=== PATIENT | male | born 1945 | race Caucasian/White ===

== ENCOUNTER 2018-06-10 15:26 | Inpatient (IN) ==
[2018-06-10] MEDS ORDERED: ASPIRIN PO ONE (15:35)
[2018-06-10] MEDS ORDERED: CARDIZEM IV ONE (15:38)
[2018-06-10] MEDS ORDERED: CARDIZEM 125/NS 125 MG/125 ML IVPB IV SCH ×2 (15:45→18:45)
--- NOTE | 2018-06-10 16:03 | PROVIDER DOCUMENTATION ---
This chart was entered by Vee Welch Scribe, acting as scribe for Asmita Isabel MD. HPI-Cardiac General - General Chief Complaint: Palpitations Stated Complaint: A-FIB Time Seen by Provider: 06/10/18 15:35 Source: patient, family Allergies/Adverse Reactions: Patient Allergies Allergy/AdvReac Type Severity Reaction Status Date / Time No Known Allergies Allergy Verified 06/10/18 15:35 Home Medications: Home Medication List Medication Instructions Recorded Confirmed Last Taken Type Allopurinol 100 mg PO DAILY 03/25/16 06/10/18 04/23/16 History Metformin HCl 1,000 mg PO BID 03/25/16 06/10/18 04/23/16 History Amlodipine Besylate 1 tab PO DAILY 07/06/17 06/10/18 Unknown History Morphine Sulfate 15 mg PO Q12HR PRN 07/06/17 06/10/18 Unknown History Rivaroxaban [Xarelto] 20 mg PO DAILY 09/29/17 06/10/18 Unknown History Sitagliptin [Januvia] 100 mg PO DAILY 09/29/17 06/10/18 Unknown History Aspirin 1 tab PO DAILY 06/10/18 06/10/18 Unknown History Diltiazem [Cardizem] 30 mg PO BID #14 tab 06/10/18 Unknown Rx Glipizide [Glucotrol] 5 mg PO DAILY 06/10/18 06/10/18 Unknown History Morphine Sulfate 1 tab PO Q8H 06/10/18 06/10/18 Unknown History - History of Present Illness-Cardiac Nature of Presenting Problem: Pt is 73/m w/ HR of 160 [employer], pt was at hospital receiving pre-op labs and EKG for neck surgery that he has scheduled next week and it was discovered that his HR was 160, so he was sent to ED. PT sts that he is not have any symptoms and denies any SOB or CP. Pt has significant cardiac hx and has had triples bypass and stents put in the the past. Pt has DM, HTN. Takes daily aspirin, amlodipine and morphine. Location: reports: other (no pain) Quality of Pain: reports: none Severity in ED: moderate Onset/Duration: unsure Timing: still present Context/Activities at Onset: reports: none Modifying Factors: improves with: nothing Palpitation Quality: fast/pounding heart beat History of arrythmia: reports: A-Fib Nitro Today/Relief: reports: no nitro taken today Aspirin Treatment Today: reports: provided at home Associated Symptoms: reports: denies symptoms. denies: diaphoresis, dizziness, nausea, shortness of breath, vomiting Similar Symptoms Previously?: Yes Recently Seen Here or By Another Healthcare Provider: No Review of Systems - Adult - REVIEW OF SYSTEMS - ADULT Constitutional: reports: no symptoms reported. denies: chills, fever Eyes: reports: no symptoms reported Ears, Nose, Mouth & Throat: reports: no symptoms reported Cardiovascular: reports: no symptoms reported. denies: chest pain, edema Respiratory: reports: no symptoms reported. denies: shortness of breath Gastrointestinal: reports: no symptoms reported. denies: nausea, vomiting Genitourinary: reports: no symptoms reported Musculoskeletal: reports: no symptoms reported Integumentary: reports: no symptoms reported Neurological: reports: no symptoms reported Psychiatric: reports: no symptoms reported Endocrine: reports: no symptoms reported. denies: excessive sweating Hematologic/Lymphatic: reports: no symptoms reported Allergic/Immunologic: reports: no symptoms reported All Other Systems: Reviewed and Negative Past History - Adult - PAST MEDICAL HISTORY-ADULT Review of Records: reports: Old Records Reviewed, Nursing Assessment Review, Medications Reviewed, Social history reviewed & non-contributory. Major Childhood Illnesses: reports: denies history Cardiovascular: reports: cardiac disease, A-Fib, blood clots, CAD, CHF, HTN Respiratory: reports: denies history Gastrointestinal: reports: denies history Obstetrical/Gynecological: reports: denies history Genitourinary: reports: denies history Musculoskeletal: reports: denies history Neurological: reports: Alzheimer's Endocrine/Immune: reports: Diabetes Other Conditions: reports: denies history Additional History: PE, DVT - PRIOR SURGERIES/PROCEDURES Surgical/Procedure History: reports: CABG, back/neck - IMMUNIZATION STATUS Childhood Immunizations: See Nurse Assessment Flu Vaccine: See Nurse Assessment - FAMILY HISTORY Family History: reviewed, not pertinent - SOCIAL HISTORY Smoking: denies, non-smoker Substance Use: none/never Alcohol Use Frequency: never Living Situation: family Physical Exam-General - PHYSICAL EXAM-ADULT Initial Vital Signs Reviewed: Yes - CONSTITUTIONAL General Appearance: appears well, alert, no apparent distress - EYES Eyes: pink conjunctivae - HEAD, EARS, NOSE, MOUTH & THROAT HENMT: normocephalic/atraumatic, moist mucous membranes, normal ENT inspection, TMs normal, pharynx normal - NECK Neck: non-tender, full range of motion, supple, normal inspection - RESPIRATORY Respiratory: lungs clear, normal breath sounds, no pleuratic chest pain, no respiratory distress, no accessory muscle use - CARDIOVASCULAR Cardiovascular: no edema, tachycardia (145), other (rapid rate, irregular) - GASTROINTESTINAL (ABDOMEN) Abdominal Exam: non tender, soft, no organomegaly, no pulsatile mass - LYMPHATIC Lymphatic: no adenopathy - MUSCULOSKELETAL Back Exam: normal inspection, no CVA tenderness, no vertebral tenderness Extremity: normal range of motion, non-tender, normal gait, normal inspection - SKIN Integumentary: normal color, normal turgor, warm/dry - NEUROLOGIC Neurologic: grossly normal, no motor/sensory deficits - PSYCHIATRIC Psych/Mental Status: normal mood/affect, normal thought content, normal thought process, oriented x 3 Progress - PLAN OF CARE/RESULTS Progress/Plan/Lab Results: Vital Signs - 8 hr 06/10/18 15:30 06/10/18 15:55 06/10/18 16:41 Temperature Pulse Rate 145 H 124 H 103 H Respiratory Rate 20 21 16 Blood Pressure 132/86 100/81 125/64 O2 Sat by Pulse Oximetry 97 97 97 06/10/18 17:08 06/10/18 17:10 06/10/18 18:36 Temperature 98.5 F Pulse Rate 100 H 121 H Respiratory Rate 14 21 Blood Pressure 108/75 131/97 O2 Sat by Pulse Oximetry 97 97 Laboratory Results - last 24 hr 06/10/18 06/10/18 06/10/18 15:45 15:45 15:45 WBC 15.69 H RBC 4.86 Hgb 14.0 Hct 40.1 L MCV 82.5 MCH 28.8 MCHC 34.9 RDW Std Deviation 13.4 Plt Count 319 MPV 10.6 H Immature Gran % (Auto) 0.3 Neut % (Auto) 71.0 Lymph % (Auto) 17.0 L [place] % (Auto) 11.2 H Eos % (Auto) 0.3 Baso % (Auto) 0.2 Immature Gran # (Auto) 0.05 H Neut # (Auto) 11.15 H Lymph # (Auto) 2.66 [place] # (Auto) 1.75 H Eos # (Auto) 0.05 Baso # (Auto) 0.03 ESR PT INR PTT (Actin FS) Sodium 140 Potassium 4.1 Chloride 100 Carbon Dioxide 22 L Anion Gap 18 BUN 26 H Creatinine 1.4 H Estimated GFR/1.73 m2 50 BUN/Creatinine Ratio 19 Glucose 282 H Calculated Osmolality 294 Calcium 8.9 Total Bilirubin 0.30 AST 26 ALT 28 Alkaline Phosphatase 58 Creatine Kinase 32 Troponin T Ckx-[id number]-Ojzdqpvbhel Pept 718 H Total Protein 7.1 Albumin 3.8 Globulin 3.0 Albumin/Globulin Ratio 1.0 Digoxin Monoscreen 06/10/18 06/10/18 06/10/18 15:45 15:45 15:45 WBC RBC Hgb Hct MCV MCH MCHC RDW Std Deviation Plt Count MPV Immature Gran % (Auto) Neut % (Auto) Lymph % (Auto) [place] % (Auto) Eos % (Auto) Baso % (Auto) Immature Gran # (Auto) Neut # (Auto) Lymph # (Auto) [place] # (Auto) Eos # (Auto) Baso # (Auto) ESR PT 23.0 H INR 1.93 PTT (Actin FS) 32.0 Sodium Potassium Chloride Carbon Dioxide Anion Gap BUN Creatinine Estimated GFR/1.73 m2 BUN/Creatinine Ratio Glucose Calculated Osmolality Calcium Total Bilirubin AST ALT Alkaline Phosphatase Creatine Kinase Troponin T < 0.010 Vpq-T-Vhkqokvenxh Pept Total Protein Albumin Globulin Albumin/Globulin Ratio Digoxin 0.3 L Monoscreen 06/10/18 06/10/18 15:45 15:45 WBC RBC Hgb Hct MCV MCH MCHC RDW Std Deviation Plt Count MPV Immature Gran % (Auto) Neut % (Auto) Lymph % (Auto) [place] % (Auto) Eos % (Auto) Baso % (Auto) Immature Gran # (Auto) Neut # (Auto) Lymph # (Auto) [place] # (Auto) Eos # (Auto) Baso # (Auto) ESR 7 PT INR PTT (Actin FS) Sodium Potassium Chloride Carbon Dioxide Anion Gap BUN Creatinine Estimated GFR/1.73 m2 BUN/Creatinine Ratio Glucose Calculated Osmolality Calcium Total Bilirubin AST ALT Alkaline Phosphatase Creatine Kinase Troponin T Oca-O-Bevpityfjjy Pept Total Protein Albumin Globulin Albumin/Globulin Ratio Digoxin Monoscreen NEGATIVE Orders Category Date Time Status Admit - [facility] Routine AdmDCTranf 06/10/18 18:33 Active Activity - Up with Assistance ORDERED Care 06/10/18 18:33 Active Cardiac Monitoring DIRECTED Care 06/10/18 15:36 Active DVT/PE Risk Assess/Protocol [QM] ORDERED Care 06/10/18 18:33 Active Daily Weights QDAY ASSESS Care 06/10/18 18:33 Active Intake and Output-Strict ORDERED Care 06/10/18 18:33 Active Notify MD if DIRECTED Care 06/10/18 18:33 Active Old records/chart to unit .From other facility Care 06/10/18 18:33 Active Oxygen Therapy- ED Nursing DIRECTED Care 06/10/18 15:36 Active Saline Loc NOW Care 06/10/18 15:36 Active Vital Signs Order Q 4-HR ASSESS Care 06/10/18 18:33 Active Heart Healthy Diet Diet 06/10/18 18:34 Active CHEST-PORTABLE [RAD] Stat Exams 06/10/18 15:36 Completed CBC WITH ELECTRONIC DIFF [HEME] Stat Lab 06/10/18 15:45 Completed CBC WITH NO DIFF [HEME] Routine Lab 06/11/18 06:00 Ordered CK PROFILE [SP CHEM] Q8H Lab 06/10/18 18:45 Ordered CK PROFILE [SP CHEM] Q8H Lab 06/11/18 02:45 Ordered CK PROFILE [SP CHEM] Q8H Lab 06/11/18 10:45 Ordered CK PROFILE [SP CHEM] Stat Lab 06/10/18 15:45 Completed COMPREHENSIVE METABOLIC PANEL [CHEM] Routine Lab 06/11/18 06:00 Uncollected COMPREHENSIVE METABOLIC PANEL [CHEM] Stat Lab 06/10/18 15:45 Completed DIGOXIN [TDM] Stat Lab 06/10/18 15:45 Completed MONO SCREEN [SERO] Stat Lab 06/10/18 15:45 Completed PRO B-NATRIURETIC PEPTIDE Stat Lab 06/10/18 15:45 Completed PROTIME WITH INR [COAG] Stat Lab 06/10/18 15:45 Completed PTT [COAG] Stat Lab 06/10/18 15:45 Completed SED RATE [HEME] Stat Lab 06/10/18 15:45 Completed TROPONIN T Q8H Lab 06/10/18 18:45 Ordered TROPONIN T Q8H Lab 06/11/18 02:45 Ordered TROPONIN T Q8H Lab 06/11/18 10:45 Ordered TROPONIN T Stat Lab 06/10/18 15:45 Completed Acetaminophen [Tylenol] Med 06/10/18 18:33 Active 650 mg PO Q6H PRN PRN Allopurinol [Zyloprim] Med 06/11/18 09:00 Active 100 mg PO DAILY Aspirin Med 06/10/18 15:35 Discontinued 325 mg PO NOW ONE Aspirin Med 06/11/18 09:00 Active 81 mg PO DAILY Diltiazem 125 mg/Ns [Cardizem 125/Ns] Med 06/10/18 15:45 Discontinued 125 mg in 125 ml IV As Directed mls/hr Diltiazem 125 mg/Ns [Cardizem 125/Ns] Med 06/10/18 18:45 Active 125 mg in 125 ml IV As Directed mls/hr Diltiazem [Cardizem] Med 06/10/18 15:38 Discontinued 10 mg IV NOW ONE Diltiazem [Cardizem] Med 06/10/18 17:44 Discontinued 30 mg PO NOW ONE Glipizide [Glucotrol] Med 06/11/18 09:00 Active 5 mg PO DAILY Metformin [Glucophage] Med 06/10/18 18:45 Active 1,000 mg PO BID CC Morphine Ir Med 06/10/18 18:36 Active 15 mg PO Q12H PRN PRN Morphine Ir Med 06/10/18 18:45 Active 15 mg PO Q8H Ondansetron [Zofran] Med 06/10/18 18:33 Active 4 mg IV Q4H PRN PRN Rivaroxaban [Xarelto] Med 06/11/18 09:00 Active 20 mg PO DAILY Sitagliptin [Januvia] Med 06/11/18 09:00 Active 100 mg PO DAILY Zolpidem [Ambien] Med 06/10/18 18:33 Active 5 mg PO HS PRN PRN CP/SOB/Palp >45 yrs of Age Stat Oth 06/10/18 15:35 Ordered Oxygen Device Routine Oth 06/10/18 18:33 Completed Pulse Oximetry Routine Oth 06/10/18 18:33 Completed EKG [EKG] Stat Ther 06/10/18 15:36 Ordered Limited Echocardiogram Routine Ther 06/10/18 18:33 Ordered The one 10 mg bolus IV of cardizem corrected rate well, drip held ABC 15, with viral shifts of L 17 decrease and M 11 increase, getting sed rate and mono test 1742 d/w Dr Sebastian HPI exam treatment all results, double dig daily, take HR BID, if over 100 take cardizem short acting 30 mg (give a dose here too), f/u after this weekend rediscussion with Dr Sebastian, turns out pt is not actually on Digoxin based on updated list, he has decided to admit and is doing the admit and more labs and a drip Result Diagrams: 06/10/18 15:45 06/10/18 15:45 - EKG 1 Time of EKG reading by physician:: 15:10 EKG Read and Signed by:: Asmita Isabel EKG Interpretation (*Must complete 3 of following elements*): Abnormal (Atrial fibrillation with rapid ventricular response, ST&T wave abnormality, consider inferolateral ischemia, Abnormal ECG) Rate: 159 Rhythm: Atrial fibrillation [place]: normal SD Interval: normal Comments: No apparent stemi - XRAY 1 XRAY: Bilateral XRAY Study: Chest Impression: Normal (IMPRESSION: Negative exam. Electronically signed by Daniel Goyal 06/10/2018 4:27 PM 06/10/18 [id number]) Departure - Departure Date of Disposition Decision: 06/10/18 Time of Disposition Decision: 17:44 DIAGNOSIS: Atrial fibrillation with rapid ventricular response Disposition: ADMITTED INPATIENT 09 Certified Medical Emergency: Emergent Condition: Good Additional Freetext Instructions: Your heart rate improved with one dose of Cardizem IV. I spoke with Dr Sebastian. He wants you to have one dose of Cardizem in the department. He wants you to double your dose of the Digoxin by taking two tablets daily. He wants you to check your heart rate twice a day around the same time. If your heart rate is over 100, take one tablet of the Cardizem, in 12 hours retake your heart rate, if still over 100, take the Cardizem again. If your heart rate is over 140 at any time, return to the emergency department. Prescriptions: Diltiazem [Cardizem] 30 mg PO BID #14 tab Referrals and Follow-Ups: Elijah Sebastian MD [Primary Care Provider] - - Critical Care Note This patient required my direct & personal management of CC.: Yes Total Time (mins): 31 Critical Care Statement: This patient required my direct personal management to treat or rule out processes, the absence of which, could potentiallly result in sudden, clinically significant life or limb threatening deterioration. Attestation - Physician/ BLKAE Attestation The physician spent face to face time with patient:: Yes Advanced Practice Provider documentation review:: Supervising physician onsite and consulted in the evaluation and care of this patient. The physician did have a face to face encounter with the patient. This chart was documented by the indicated scribe, (Vee Welch, Akila) and accurately reflects the services I performed and decisions made by me, Asmita Isabel MD, as attested by the provider's signature.
[2018-06-10 16:09] LABS: BASO# 0.03 X1000 (0.0-0.2); BASO% 0.2 % (0.0-0.8); EOS# 0.05 X1000 (0.0-0.7); EOS% 0.3 % (0.0-10.0); HEMATOCRIT 40.1 % (42.0-52.0); IMM GRAN# 0.05 X1000 (0.0-0.04); IMM GRAN% 0.3 % (0.0-0.5); LYMPH# 2.66 X1000 (1.2-3.4); MCH 28.8 PG (27-31); MCHC 34.9 g/dL (33-37); MCV 82.5 FL (81-99); MONO# 1.75 X1000 (0.11-0.59); MONO% 11.2 % (1.7-9.3); MPV 10.6 FL (7.4-10.4); NEUT# 11.15 X1000 (1.4-6.5); PLT 319 X1000 (130-400); RBC 4.86 XMIL (4.7-6.1); RDW 13.4 % (11.5-14.5); WBC 15.69 X1000 (4.8-10.8)
[2018-06-10 16:29] LABS: INR 1.93
--- NOTE | 2018-06-10 16:30 | Diag Imaging Result Doc PS360 ---
CHEST-PORTABLE - 06/10/2018 INDICATION: chest pain COMPARISON: 10/01/2017 FINDINGS: The lungs are normally expanded and clear. Heart size and mediastinal contours are normal. No pneumothorax or pleural effusion. There is a stable small granuloma in the right midlung. There are stable sternotomy wires. IMPRESSION: Negative exam. Electronically signed by Daniel Goyal 06/10/2018 4:27 PM
[2018-06-10 16:40] LABS: ALBUMIN 3.8 g/dL (3.5-5.0); CALCIUM 8.9 mg/dL (8.8-10.2); CREATININE 1.4 mg/dL (0.7-1.2); POTASSIUM 4.1 mmol/L (3.5-5.1); TOTAL BILIRUBIN 0.3 mg/dL (0.20-1.00); TOTAL PROTEIN 7.1 g/dL (6.3-8.3)
[2018-06-10] MEDS ORDERED: CARDIZEM PO ONE (17:44)
[2018-06-10] MEDS ORDERED: AMBIEN PO PRN (18:33)
[2018-06-10] MEDS ORDERED: ZOFRAN IV PRN (18:33)
[2018-06-10] MEDS: GLUCOPHAGE PO SCH (19:08)
[2018-06-10] MEDS: MORPHINE IR PO SCH (19:09)
[2018-06-10] MEDS ORDERED: NS 1,000 ML IV ONE (19:12)
[2018-06-11] MEDS: MORPHINE IR PO SCH ×3 (02:34→17:48)
[2018-06-11] MEDS ORDERED: MS CONTIN PO PRN (06:50)
[2018-06-11 07:03] LABS: HEMATOCRIT 38.5 % (42.0-52.0); HEMOGLOBIN 13.1 g/dL (14.0-18.0); MCH 28.2 PG (27-31); MPV 10.7 FL (7.4-10.4); RBC 4.64 XMIL (4.7-6.1); RDW 13.3 % (11.5-14.5); WBC 13.17 X1000 (4.8-10.8)
[2018-06-11 07:27] LABS: AGAP 17; ALBUMIN 3.3 g/dL (3.5-5.0); ALKALINE PHOSPHATASE 53 U/L (32-122); BUN 23 mg/dL (8-22); CALCIUM 8.2 mg/dL (8.8-10.2); CHLORIDE 104 mmol/L (98-107); COSMO 285; ESTIMATED GFR > 60; GLUCOSE 125 mg/dL (70-104); GOT 30 U/L (10-34); GPT 27 U/L (10-44); POTASSIUM 4.1 mmol/L (3.5-5.1); SODIUM 140 mmol/L (136-145); TCO2 19 mmol/L (25-35); TOTAL PROTEIN 6.4 g/dL (6.3-8.3)
[2018-06-11] MEDS: JANUVIA PO SCH (08:09)
[2018-06-11] MEDS: GLUCOPHAGE PO SCH ×2 (08:09→17:48)
[2018-06-11] MEDS: CARDIZEM PO SCH ×3 (08:09→17:48)
[2018-06-11] MEDS: ASPIRIN PO SCH (08:10)
[2018-06-11] MEDS: XARELTO PO SCH (08:10)
[2018-06-11] MEDS: GLUCOTROL PO SCH (08:10)
--- NOTE | 2018-06-11 08:37 | HISTORY AND PHYSICAL ---
CHIEF COMPLAINT: Fatigue, elevated heart rate. HISTORY OF PRESENT ILLNESS: The patient is a 73-year-old male who has neck surgery planned. He presented to the hospital today for preop testing at which point, he was noted to be in atrial fibrillation RVR with a heart rate in the 150s to 160 range. He was asked to go to the ER, which he did. Mr. Smith denies any palpitations, shortness of breath. States he has had extreme fatigue worsening over the past several months, but does not note any elevation in his heart rate or feeling his heart racing or skipping beats. He denies any chest pain, however, does have a remote history of atrial fibrillation several years ago when he had coronary disease. SOCIAL HISTORY: Patient is 73. He is . He is retired. Lives at home in [place]. ALLERGIES: No known drug allergies. MEDICATIONS: 1. Allopurinol 100 mg. 2. Metformin 1000 mg. 3. Norvasc 5 mg daily. 4. Morphine 15 b.i.d. 5. OxyContin 10 q.6 p.r.n. 6. Xarelto 20. 7. Januvia 100. 8. Cardizem in the remote history, although he is not currently taking. 9. Glipizide. REVIEW OF SYSTEMS: As noted above. Patient notes he has been tired, fatigued, short of breath for the last several months, but denies any palpitations, skipped heartbeats. Denies any elevation in his heart rate that he knows of. He denies any recent chest pain. Denies dysuria, frequency, urgency, hesitancy. Denies any skin rashes, weight loss or weight gain. Denies any swelling in his lower extremities, PND, orthopnea. Denies wheezing, coughing, congestion or other upper respiratory type symptoms. Denies headaches or blurred vision. PAST MEDICAL HISTORY: Known coronary artery disease, atrial fibrillation, blood clots, congestive heart failure, hypertension, diabetes, history of Alzheimer's. He has had a CABG in the past. He has had previous neck surgery. FAMILY HISTORY: Noncontributory. PHYSICAL EXAMINATION: VITAL SIGNS: Reviewed. He is afebrile. Heart rate is irregular from 110s to 160s. He is asymptomatic with this. Her blood pressure is stable. Respiratory 20. GENERAL: Patient is very pleasant to talk with. He is in no acute respiratory distress. HEENT: Normocephalic, atraumatic. NECK: Supple. No JVD. CHEST: Clear, nonlabored. No wheezing. CV: Irregular rate, irregular rhythm. ABDOMEN: Soft, nondistended, nontender. EXTREMITIES: Moves all extremities. NEUROLOGICAL: No focal neurological changes. ASSESSMENT: 1. Atrial fibrillation with RVR. 2. Known coronary disease. 3. Congestive heart failure. 4. Diabetes with hyperglycemia. 5. Leukocytosis of undetermined origin. 6. Others. PLAN: We will continue patient in the hospital. We will continue to follow, place him in the ICU on Cardizem and telemetry. Rule out HI. Further orders as needed. We will continue his other home medications. cc: Elijah Sebastian MD
[2018-06-11] MEDS: ZYLOPRIM PO SCH (11:16)
[2018-06-11] MEDS: NON-FORMULARY MED PO SCH (11:17)
[2018-06-11] MEDS: MORPHINE IR PO PRN (23:56)
[2018-06-12] MEDS: MORPHINE IR PO SCH ×3 (03:11→17:53)
[2018-06-12] MEDS ORDERED: CARDIZEM PO SCH ×2 (05:00→13:00)
[2018-06-12] MEDS: NON-FORMULARY MED PO SCH (08:16)
[2018-06-12] MEDS: JANUVIA PO SCH (08:16)
[2018-06-12] MEDS: GLUCOPHAGE PO SCH ×2 (08:17→17:35)
[2018-06-12] MEDS: ASPIRIN PO SCH (08:17)
[2018-06-12] MEDS: ZYLOPRIM PO SCH (08:17)
[2018-06-12] MEDS: XARELTO PO SCH (08:17)
[2018-06-12] MEDS: GLUCOTROL PO SCH (08:17)
[2018-06-12] MEDS ORDERED: LOPRESSOR IV PRN (14:40)
--- NOTE | 2018-06-12 18:50 | CONSULTATION ---
DATE OF CONSULTATION: 06/12/2018 IMPRESSION: 1. Recurrent atrial fibrillation with rapid ventricular rate. Patient has history of previous atrial fibrillation in the past. Patient continues in atrial fibrillation. 2. Atherosclerotic coronary disease. A. Status post previous coronary bypass grafting with left internal mammary artery graft to left anterior descending coronary, saphenous vein graft to circumflex, and saphenous vein graft to the distal right coronary. This was performed in 2005. B. Status post angioplasty/drug eluting stent to the left circumflex coronary at time of discovery of occluded saphenous vein graft to the circumflex. C. Last cardiac catheterization study performed 04/29/2016 dictated continued medical management. D. Last stress myocardial perfusion study performed 10/01/2017 demonstrated no evidence of inducible myocardial infarction ischemia, normal left ventricular systolic function. Patient continues without angina. 3. History of previous pulmonary embolus March 2016. 4. Hypertension. 5. Hyperlipidemia. 6. Type 2 diabetes mellitus. RECOMMENDATIONS: 1. Given recurrence of atrial fibrillation and persistence, favor initiation of sotalol in effort to convert back to sinus rhythm. Sotalol 80 mg twice daily to be initiated. 2. Continue anticoagulation. 3. If patient remains in atrial fibrillation despite sotalol after 24 hours, may consider pursuit of ALKA/cardioversion on June 14. HPI: Patient is 73 year old white male with past history of PAF, CAD, prior CABG, pulmonary embolus, HTN, hyperlipidemia, and DM II admitted with recent onset of atrial fibrillation with rapid ventricular rate. He has prior episode of atrial fibrillation and has been on mcfp anticoagulation. He presented for preop testing before elective neck surgery and was found to be in atrial fibrillation with rapid ventricular rate. He has not had any palpitations, chest pain, nor dyspnea. He was unaware of his arrhythmia. He was admitted and started on diltiazem for rate control. He has remained in atrial fibrillation and Cardiology was consulted. PMH: 1. CAD and prior CABG 2. PAF 3. Prior pulmonary embolus 4. HTN 5. Hyperlipidemia 6. Type 2 diabetes mellitus 7. He has no know drug allergies 8. Medications prior to admission as listed. Social: He is and retired. Family: Negative for premature coronary disease. ROS: Pulmonary noncontributory. Gastrointestinal noncontributory. Constitutional noncontributory. Remainder of review of systems noncontributory with 14 total systems reviewed. Exam: Older white male in no distress. BP 130/80. Heart rate 90 with ECG monitor showing atrial fibrillation. HEENT: Pupils equal and reactive to light. Mucous membranes moist. Neck: Supple without JVD. No carotid bruits. Chest: Clear to auscultation bilaterally. Cardiac: Irregular rate and rhythm without appreciable murmur or gallop. Abdomen: Soft. Bowel sounds normal. Extremities: No edema Neurological: Alert and oriented. Speech fluent. Moves all extremities equally well. Lab: WBC 13.17, HCT 38.5, Hgb 13.1, platelets 285,000, sodium 140, potassium 4.1, chloride 104, carbon dioxide 19, glucose 125, BUN 23, creatinine 1.0 ECG: Atrial fibrillation with rapid ventricular rate, nonspecific ST and T abnormality cc: MD Elijah Adams MD MTDD
[2018-06-12] MEDS: TYLENOL PO PRN (21:37)
[2018-06-12] MEDS: MORPHINE IR PO PRN (21:37)
[2018-06-12] MEDS: BETAPACE PO SCH (21:41)
--- NOTE | 2018-06-13 01:13 | PROGRESS NOTE ---
DATE: 06/12/2018 SUBJECTIVE: The patient notes that he feels okay. He is asymptomatic. Denies any palpitations. Denies feeling his heart racing. PHYSICAL EXAMINATION: Vital Signs: Reviewed. He is afebrile with a temperature at 98 degrees, pulse 113, respiratory 20, BP 117/72. General: Patient is very pleasant to talk with. He is in no distress. HEENT: Normocephalic, atraumatic. Neck: Supple. Cardiovascular: Irregular rate irregular rhythm. Poor control of rate despite Cardizem. Chest: Clear, nonlabored. No wheezing. Abdomen: Soft and nondistended. Extremities: Moves all extremities. No edema. ASSESSMENT: 1. Atrial fibrillation. Patient has had recurrence of his atrial fibrillation. He has been in sinus rhythm for the past year or so. His rate is very easily controlled on Cardizem IV. However, after switching to p.o. he immediately goes back into rapid rate. He is asymptomatic so this certainly could have been happening at home and could be the cause of his recurrent fatigue. 2. Known coronary artery disease. This also could be the cause of his recurrent fatigue, but I believe he has had a stress test recently. 3. Chronic neck pain. He was scheduled to have surgery on his neck, but this will have to wait until after he is rate controlled and cleared by Cardiology. 4. Diabetes. PLAN: We will continue patient in the hospital. We will ask Cardiology to evaluate and help in his treatment course given that he has been recalcitrant to Cardizem and we will follow. cc: Elijah Sebastian MD
[2018-06-13] MEDS: MORPHINE IR PO SCH ×3 (02:22→18:41)
[2018-06-13] MEDS: GLUCOPHAGE PO SCH ×2 (08:46→18:42)
[2018-06-13] MEDS: ZYLOPRIM PO SCH (08:46)
[2018-06-13] MEDS: XARELTO PO SCH (08:48)
[2018-06-13] MEDS: JANUVIA PO SCH (08:49)
[2018-06-13] MEDS: BETAPACE PO SCH ×2 (08:49→21:31)
[2018-06-13] MEDS: ASPIRIN PO SCH (08:49)
[2018-06-13] MEDS: GLUCOTROL PO SCH (08:49)
[2018-06-13] MEDS: NON-FORMULARY MED PO SCH (08:50)
--- NOTE | 2018-06-13 22:27 | PROGRESS NOTE ---
DATE: 06/13/2018 SUBJECTIVE: Patient has no new complaints. Still does not feel his heart racing. PHYSICAL: Temperature 98, pulse 81 while he is resting unfortunately with any movement he went to the 130s, 140s, blood pressure 84/54.General: Patient is awake, alert, he is in no current respiratory distress. He is very pleasant to talk with. He is completely asymptomatic from his tachycardic episodes. HEENT: Normocephalic, atraumatic, YOLANDE. Neck: Supple. CV: Irregular rate, irregular rhythm, poor rate control when has any attempted movement. Chest: Clear nonlabored. Abdomen: Soft, nondistended, nontender. Extremities: Moves all extremities. ASSESSMENT: 1. Atrial fibrillation with rapid ventricular response despite sotalol . 2. Hypotension likely secondary to atrial fibrillation as well as the sotalol. 3. Known coronary artery disease . 4. Congestive heart failure. 5. Diabetes with hyperglycemia. PLAN: Will continue sotalol today, we attempted to move him out floor but his heart rate then went 130, 140, will recontact Cardiology as Dr. Victoria's note stated if he prefer him transfer to [facility] for cardioversion. cc: Elijah Sebastian MD [facility]
[2018-06-13] MEDS: MORPHINE IR PO PRN (23:31)
[2018-06-14] MEDS: MORPHINE IR PO SCH ×3 (04:44→18:43)
[2018-06-14] MEDS: ASPIRIN PO SCH (09:04)
[2018-06-14] MEDS: NON-FORMULARY MED PO SCH (09:04)
[2018-06-14] MEDS: JANUVIA PO SCH (09:04)
[2018-06-14] MEDS: XARELTO PO SCH (09:05)
[2018-06-14] MEDS: BETAPACE PO SCH ×2 (09:05→21:21)
[2018-06-14] MEDS: GLUCOPHAGE PO SCH ×2 (09:05→17:46)
[2018-06-14] MEDS: ZYLOPRIM PO SCH (09:05)
[2018-06-14] MEDS: GLUCOTROL PO SCH (09:05)
[2018-06-14] MEDS: TYLENOL PO PRN (09:08)
--- NOTE | 2018-06-14 10:43 | EKG Report ---
Test Performed on : 06/14/2018 05:45:48 AM Test Reason : atrial fibrillation Blood Pressure : / mmHG Vent. Rate : 096 BPM Atrial Rate : 340 BPM P-R Int : 000 ms QRS Dur : 092 ms QT Int : 386 ms P-R-T Axes : 000 044 061 degrees QTc Int : 487 ms Atrial fibrillation. Nonspecific T wave abnormality Prolonged QT Abnormal ECG When compared with ECG of 10-JUN-2018 15:10, (Unconfirmed) Vent. rate has decreased BY 63 BPM Non-specific change in ST segment in Inferior leads ST no longer depressed in Anterolateral leads T wave inversion no longer evident in Inferior leads T wave inversion no longer evident in Lateral leads Confirmed by Adam Levy MD ([id number]) on 06/16/2018 6:17:36 AM
[2018-06-14] MEDS ORDERED: DIPRIVAN 1% ONE (12:31)
[2018-06-14] MEDS ORDERED: XYLOCAINE 2% VISCOUS ONE (12:32)
[2018-06-14] MEDS ORDERED: CLAVE PUMP SET NO FILTER 12260 ONE (12:32)
[2018-06-14] MEDS ORDERED: NS 1,000 ML ONE (12:32)
[2018-06-14] MEDS ORDERED: CLAVE TWINSITE 32 IN 11959 ONE (12:32)
--- NOTE | 2018-06-14 13:37 | CARDIAC CATH REPORT ---
PROCEDURE NAME: - INDICATION FOR THE PROCEDURE: Atrial fibrillation. PROCEDURE PERFORMED: Direct current cardioversion. PROCEDURE IN DETAIL: Mr. Smith was brought to the catheterization laboratory in fasting state. Informed consent was obtained. After adequate visualization of the left atrium and left atrial appendage with transesophageal echo, the patient was deemed to be an appropriate candidate. He was ensured to be adequately sedated. After the ALKA probe was removed, he was placed in synchronized mode on the defibrillator. One shock was delivered at 150 joules with conversion to sinus rhythm. His corrected QT interval was 465 milliseconds. For the time being, we will continue him on current dose of sotalol at 80 mg b.i.d. He will continue on Xarelto as well, which he received this morning. He will be transferred back over to [place] for further management. cc: MD Elijah Newell MD
--- NOTE | 2018-06-14 15:10 | ECHO REPORT ---
ORDER DATE: 06/14/2018 INDICATION: Atrial fibrillation, evaluate pre-cardioversion. PROCEDURE IN DETAIL: Mr. Smith was brought to the catheterization laboratory in the fasting state. Informed consent was obtained. Prepped in the usual fashion using Hurricane anesthetic spray. After appropriate sedation with propofol, a ALKA probe was passed without difficulty. Images were obtained in multiple planes. No apparent complications. At the conclusion of the procedure, the ALKA probe was removed without difficulty. FINDINGS: 1. The right atrium is difficult to visualize but appears to be mildly enlarged. 2. There is mild to moderate tricuspid regurgitation. 3. The right ventricle is difficult to visualize overall but has probable normal RV systolic function. 4. No significant pulmonic insufficiency on difficult views of the pulmonic valve. 5. There is mild left atrial enlargement. No clot is visualized in the left atrium or left atrial appendage. The pulse wave velocity in the left atrial appendage is greater than 50 cm/sec. 6. No mitral valve prolapse. There is a mild central jet of mitral regurgitation. 7. The left ventricle appears to be normal in size with no clear evidence of significant left ventricular hypertrophy. The estimated ejection fraction appears greater than 55%. Transgastric views in this patient were extremely challenging. 8. Aortic valve opens well. It is trileaflet. There is trace insufficiency with no stenosis. 9. There is mild calcific atherosclerosis identified in the descending thoracic aorta. 10. No pericardial effusion was seen. 11. There was no evidence of [id number] shunting across the interatrial septum with injection of agitated saline contrast but on color Doppler, there was some scant evidence of a very small PFO with [id number] shunting across the interatrial septum. cc: MD Dallas Newell MD Gregory S. Cheatham, MD
--- NOTE | 2018-06-14 22:37 | PROGRESS NOTE ---
DATE: 06/14/2018 SUBJECTIVE: The patient is still having no complaints. Denies any palpitations. Denies any chest pain or shortness of breath; however, any movement causes heart rate to elevate. OBJECTIVE: He is afebrile. Temperature 98 degrees, pulse 98 to 140 when he is attempting to move. Respiratory 20, BP 94/60. General: The patient is very pleasant to talk with. He is in no current respiratory distress. HEENT: Normocephalic. Neck supple. CV regular rate, irregular rhythm. Chest clear and nonlabored. Abdomen is soft, nontender. Extremities: Moves all extremities. ASSESSMENT: 1. Atrial fibrillation, rapid ventricular response. 2. Known coronary artery disease. 3. Known congestive heart failure. 4. Diabetes with hyperglycemia. PLAN: We will continue the patient in the hospital at this point. He will need to be transferred to [facility] for cardioversion. This will be left up to Cardiology. We will continue to follow. We will follow clinical course and adjust medications as needed. cc: Elijah Sebastian MD
[2018-06-15] MEDS: MORPHINE IR PO SCH ×3 (03:33→18:47)
[2018-06-15] MEDS ORDERED: XARELTO PO SCH (09:00)
[2018-06-15] MEDS: GLUCOTROL PO SCH (09:14)
[2018-06-15] MEDS: ASPIRIN PO SCH (09:14)
[2018-06-15] MEDS: GLUCOPHAGE PO SCH ×2 (09:14→16:33)
[2018-06-15] MEDS: BETAPACE PO SCH ×3 (09:14→21:25)
[2018-06-15] MEDS: JANUVIA PO SCH (09:14)
[2018-06-15] MEDS: ZYLOPRIM PO SCH (09:15)
[2018-06-15] MEDS: NON-FORMULARY MED PO SCH (09:15)
[2018-06-15] MEDS: TYLENOL PO PRN ×2 (13:16→16:33)
--- NOTE | 2018-06-15 14:58 | EKG Report ---
Test Performed on : 06/15/2018 06:10:56 AM Test Reason : atrial fibrillation Blood Pressure : / mmHG Vent. Rate : 060 BPM Atrial Rate : 060 BPM P-R Int : 158 ms QRS Dur : 082 ms QT Int : 452 ms P-R-T Axes : -27 081 017 degrees QTc Int : 452 ms Normal sinus rhythm. Normal ECG When compared with ECG of 14-JUN-2018 19:04, (Unconfirmed) Nonspecific T wave abnormality, improved in Inferior leads T wave amplitude has increased in Anterior leads Confirmed by Adam Levy MD ([id number]) on 06/16/2018 6:16:12 AM
--- NOTE | 2018-06-15 15:01 | EKG Report ---
Test Performed on : 06/14/2018 7:04:39 PM Test Reason : converted, post cardioversion Blood Pressure : / mmHG Vent. Rate : 080 BPM Atrial Rate : 080 BPM P-R Int : 162 ms QRS Dur : 082 ms QT Int : 432 ms P-R-T Axes : 041 052 005 degrees QTc Int : 498 ms Normal sinus rhythm. Possible Left atrial enlargement Prolonged QT Abnormal ECG When compared with ECG of 14-JUN-2018 05:45, (Unconfirmed) Sinus rhythm. has replaced Atrial fibrillation. Nonspecific T wave abnormality, worse in Inferior leads Confirmed by Adam Levy MD ([id number]) on 06/26/2018 11:16:35 AM
--- NOTE | 2018-06-15 22:42 | PROGRESS NOTE ---
DATE: 06/15/2018 SUBJECTIVE: The patient notes overall he is feeling fine. He does not remember anything of the event yesterday, having cardioversion. Denies any chest pain, palpitations. PHYSICAL EXAMINATION: Vital Signs: Reviewed. Temperature 97 degrees, pulse 67, respiratory 18, BP 108/62. General: He is awake, alert, in no current respiratory distress. The patient is very pleasant to talk with. HEENT: Normocephalic. Neck: Supple. Cardiovascular: Regular rate. No murmurs. Chest: Clear, nonlabored. Abdomen: Soft, nondistended. Extremities: Moves all extremities. ASSESSMENT: 1. Atrial fibrillation with rapid ventricular response, currently back in sinus rhythm after cardioversion. 2. Known coronary artery disease. 3. Congestive heart failure. 4. Diabetes. PLAN: We will continue the patient in the hospital on sotalol and continue to follow. Hopefully, he can transition home tomorrow. We will transition him to the floor today to allow him to ambulate. Further orders as needed. cc: Elijah Sebastian MD
[2018-06-16] MEDS: MORPHINE IR PO SCH (02:50)
[2018-06-16 08:08] VITALS: BP 164/72
--- NOTE | 2018-06-21 14:44 | DISCHARGE SUMMARY ---
ADMISSION DATE: 06/10/2018 DISCHARGE DATE: 06/16/2018 DISCHARGE DIAGNOSES: 1. Atrial fibrillation with RVR currently back in sinus rhythm after cardioversion. 2. Congestive heart failure with exacerbation due to atrial fibrillation. 3. Coronary artery disease. 4. Hypertension. 5. Fatigue. 6. Shortness of breath, improved. 7. Adult failure to thrive. 8. Chronic pain. 9. Mild dementia. CONSULTATIONS: Cardiology. PROCEDURES: Cardioversion. HISTORY OF PRESENT ILLNESS: The patient is a 73-year-old male who presented to [facility]'s ER secondary to increased work of breathing and shortness of breath. He was admitted to the hospital. He was noted to be in atrial fibrillation, and was placed in the ICU on Cardizem drip. His heart rate did drop pretty quickly, but unfortunately did not remain rate controlled. Cardizem continued to drop his blood pressure. Cardiology was consulted. I attempted to transition him over to sotalol, but this again would not maintain heart rate control. When the patient was lying in the bed, his heart rates was 80s to 110. However, with any exertion, he would easily bounce to 130s to 150s. Patient amazingly enough was completely asymptomatic throughout the entire event. Ultimately, Cardiology decided to cardiovert him. The patient was transferred to [facility] for cardioversion and back to the ICU at [place] as there were no beds at [facility]. Thankfully, he had an uneventful hospital course after which his heart rate remained in sinus rhythm. He tolerated the cardioversion quite well. DISPOSITION: Patient will be discharged home. He will follow up in the office in 1 week to recheck his heart rate. Thankfully, his symptoms have improved. He does appear less short of breath. He never had any symptoms from his rapid rate. No other changes were made on his chronic home medications. cc: Elijah Sebastian MD
== END 2018-06-16 09:32 | disposition home or self-care (01) | DRG 308 ==
LOC: P.ED 15:26 → P.ICU 20:01 → P.MEDSURG 06-15 11:03
PROVIDERS: ADMIT Family Medicine; ATTEND Family Medicine
CPT/HCPCS: 71010; 71045; 80053; 80162; 82550; 82948; 83880; 84484; 85025; 85027; 85610; 85651; 85730; 86308; 87070; 87077; 87186; 92960; 93005; 93010; 93306; 93308; 93312; 96365; 96375; 99285; 99291; A9270; J2405; J7030; XXXXX